=== PATIENT | male | born 1930 | race Hispanic/Latino ===

== ENCOUNTER 2017-04-10 07:35 | Inpatient (IN) | payer MEDICARE ==
[2017-04-10 07:40] VITALS: BMI 24.8
--- NOTE | 2017-04-10 08:01 | C.PDOC ---
History Of Present Illness 86 yr old male with PMHx of stroke with residua right sided weakness and lymphoma, presents to the ER accompanied by with complaints of cough since yesterday and a fever of 102. states she gave patient Ibuprofen today and patient was seen by PCP Dr. Tellez yesterday who gave patient a cough syrup. also states patient is not on any treatment for the lymphoma. Denies vomiting, abdominal pain, diarrhea or rash. Time Seen by Provider: 04/10/17 07:50 Chief Complaint (Nursing): Fever History Per: Patient History/Exam Limitations: no limitations Onset/Duration Of Symptoms: Days (1) Past Medical History Reviewed: Historical Data, Nursing Documentation, Vital Signs Vital Signs: Last Vital Signs Temp 98 F 04/10/17 16:00 Pulse 80 04/10/17 16:00 Resp 18 04/10/17 16:00 BP 175/98 H 04/10/17 16:00 Pulse Ox 96 04/10/17 16:00 - Medical History PMH: Asthma, Cardia Arrhythmia, Colonic Polyps, HTN, Hypercholesterolemia Surgical History: Coronary Stent, Endoscopy, Pacemaker (Left) - [facility] Procedures DRAINAGE OF RIGHT PLEURAL CAVITY, PERC APPROACH, DIAGN (11/27/15) INFLUENZA VACCINATION (07/07/14) INSERTION OF INFUSION DEV INTO SUP VENA CAVA, PERC APPROACH (08/20/15) Family History: States: No Known Family Hx - Social History Hx Tobacco Use: No Hx Alcohol Use: No Hx Substance Use: No - Immunization History Hx Tetanus Toxoid Vaccination: No Hx Influenza Vaccination: Yes Hx Pneumococcal Vaccination: Yes Review Of Systems Except As Marked, All Systems Reviewed And Found Negative. Constitutional: Positive for: Fever (102 ) Respiratory: Positive for: Cough Gastrointestinal: Negative for: Vomiting, Abdominal Pain, Diarrhea Skin: Negative for: Rash Physical Exam - Physical Exam Appears: Non-toxic, No Acute Distress Skin: Warm, Dry Head: Atraumatic, Normacephalic Oral Mucosa: Moist Throat: Normal, No Erythema, No Exudate, No Drooling Neck: Normal, Normal ROM, Supple Chest: Symmetrical, No Tenderness Cardiovascular: Rhythm Regular, No Murmur Respiratory: Normal Breath Sounds, No Rales, No Rhonchi, No Wheezing Neurological/Psych: Oriented x3, Other ((+) Chronic right sided weakness. ) ED Course And Treatment - Laboratory Results Result Diagrams: 04/10/17 08:30 07/04/17 08:30 ECG: Interpreted By Me, Viewed By Me ECG Rhythm: Atrial Fibrillation (with ventricular paced complexes) ECG Interpretation: No Acute Changes Interpretation Of ECG: T wave abnormalites. Similar to 11/26/15 Rate From EC (BPM ) O2 Sat by Pulse Oximetry: 96 (RA ) Pulse Ox Interpretation: Normal - Radiology CXR: Interpreted by Me, Viewed By Me CXR Interpretation: Yes: Other (Bibasilar opacity. Similar to prior. ) Medical Decision Making Medical Decision Making: PLAN: * CXR * EKG * VBG * Troponin * CBC * CMP * Urinalysis * Sodium Chloride IV Disposition - Disposition Disposition: HOSPITALIZED Disposition Time: 09:15 Condition: STABLE - Clinical Impression Clinical Impression: Pneumonia - Scribe Statement The provider has reviewed the documentation as recorded by the Ulises Bernard Provider Attestation: All medical record entries made by the Maniibe were at my direction and personally dictated by me. I have reviewed the chart and agree that the record accurately reflects my personal performance of the history, physical exam, medical decision making, and the department course for this patient. I have also personally directed, reviewed, and agree with the discharge instructions and disposition.
[2017-04-10] MEDS ORDERED: Sodium Chloride 0.9% 1,000 ML IV ONE ×2 (08:02→09:08)
[2017-04-10 08:35] LABS: BASO # 0.1 K/uL (0.0-0.2); BASO % 1.1 % (0.0-2.0); EOS # 0.1 K/uL (0.0-0.7); EOS % 2.1 % (0.0-4.0); LYMPH # 1.3 K/uL (1.0-4.3); LYMPH % 25.8 % (20.0-40.0); MEAN CELL VOLUME 94.3 fL (80.0-94.0); MEAN CORPUSCULAR HEMOGLOBIN 31.1 pg (27.0-31.0); MEAN PLATELET VOLUME 9.1 fL (7.2-11.7); MONO # 0.6 K/uL (0.0-0.8); NEUT # 3.1 K/uL (1.8-7.0); RBC 4.44 Mil/uL (4.40-5.90); WHITE BLOOD COUNT 5.2 K/uL (4.8-10.8)
[2017-04-10 08:40] LABS: VENOUS BLOOD GAS BASE EXCESS 0.9 mmol/L (0.0-2.0); VENOUS BLOOD GAS PCO2 33 mmHg (40-60); VENOUS BLOOD GAS PO2 63 mm/Hg (30-55); VENOUS BLOOD PH 7.47 (7.32-7.43)
[2017-04-10 08:43] LABS: INR 1.2; PROTHROMBIN TIME 13.2 SECONDS (9.7-12.2)
[2017-04-10 08:49] LABS: ALBUMIN 3.9 g/dL (3.5-5.0)
[2017-04-10 08:52] LABS: ALB/GLOB RATIO 1.1 (1.0-2.1); ALT/SGPT 29 U/L (21-72); AST/SGOT 28 U/L (17-59); BLOOD UREA NITROGEN 17 mg/dL (9-20); GFR AFRICAN-AMERICAN > 60; GFR NON-AFRICAN AMERICAN > 60
[2017-04-10 08:53] LABS: CALCIUM 9.5 mg/dl (8.6-10.4)
[2017-04-10 08:55] LABS: HEMOGLOBIN 13.8 g/dL (12.0-18.0)
[2017-04-10] MEDS ORDERED: Azithromycin 500 MG in Sodium Chloride 0.9% 250 ML IVPB STA (08:58)
[2017-04-10] MEDS ORDERED: Sodium Chloride 0.9% 1,000 ML ONE ×2 (09:09→09:19)
[2017-04-10] MEDS ORDERED: Azithromycin 500mg/250ML NS 500 MG/250 ML BAG IVPB ONE (09:09)
[2017-04-10] MEDS ORDERED: cefTRIAXone IV 1 gm in Dextros 50 ML IVPB ONE (09:09)
[2017-04-10 09:27] LABS: SQUAMOUS EPITHIAL 3 /hpf (0-5); URINE BILIRUBIN NEGATIVE (NEGATIVE); URINE BLOOD NEGATIVE (NEGATIVE); URINE CLARITY Clear (Clear); URINE COLOR Yellow (YELLOW); URINE GLUCOSE (UA) NORMAL (Normal); URINE LEUKOCYTE ESTERASE NEG Leu/uL (Negative); URINE NITRATE NEGATIVE (NEGATIVE); URINE PROTEIN NEGATIVE (NEGATIVE); URINE UROBILINOGEN NORMAL mg/dL (0.2-1.0)
[2017-04-10] MEDS ORDERED: guaiFENesin 100 mg/5 ml Syrup UD PO PRN (10:31)
--- NOTE | 2017-04-10 10:56 | CP.PCM.HP ---
<Ministerio Larios - Last Filed: 04/10/17 11:40> History of Present Illness - History of Present Illness History of Present Illness: CC: Fever and cough HPI: Mr Hicks is a 86 yo M who presented to the ED for fever and a cough. He says the fever and cough began yesterday afternoon. His took a temperature at home which was 102F. He reports that his cough is productive with clear phlegm. He admits to diaphoresis and chills. He denies any remitting or exacerbating factors. He did not take any meds for his fever. He also admits to mid sternal chest pain when he coughs, and urinary frequency last night as he said he urinated 5-6x, which was unusual for him. He denies all other symptoms on ROS. PMD: Dr Issa Cardio: Dr Issa Onc: Dr Nguyễn PMHx: CVA 1970 - rt sided facial weakness Lymphoma - chemo tx every 2 months Afib CAD PSHx: CABG 2007 Rt pleural drainage 2016 Home Meds: Digoxin 0.125mg po daily Metoprolol Succinate 100mg po daily Valsartan 360mg po daily SocialHx: denies smoking hx; -etoh; lives with at home FamHx: Mother 99yo; Father at 92yo; causes unknown to pt Present on Admission - Present on Admission Any Indicators Present on Admission: No Review of Systems - Constitutional Constitutional: Chills, Excessive Sweating, Fever - EENT Eyes: absent: Change in Vision Ears: absent: Ear Pain Nose/Mouth/Throat: absent: Sore Throat - Cardiovascular Cardiovascular: absent: Chest Pain Additional comments: chest pain only when he coughs - Respiratory Respiratory: Cough. absent: Dyspnea, Wheezing - Gastrointestinal Gastrointestinal: absent: Abdominal Pain, Diarrhea - Genitourinary Genitourinary: Urinary Frequency. absent: Dysuria - Musculoskeletal Musculoskeletal: absent: Joint Swelling, Numbness, Tingling - Integumentary Integumentary: absent: Bleeding Lesions, Erythema, Wounds - Neurological Neurological: absent: Behavioral Changes, Dizziness - Psychiatric Psychiatric: absent: Behavioral Changes, Confusion - Endocrine Endocrine: absent: Palpitations Past Patient History - Tetanus Immunizations Tetanus Immunization: Unknown - Past Medical History & Family History Past Medical History?: Yes - Past Social History Smoking Status: Former Smoker - CARDIAC Hx Cardia Arrhythmia: Yes Hx Hypercholesterolemia: Yes Hx Hypertension: Yes Hx Pacemaker: Yes (Left) - PULMONARY Hx Asthma: Yes - NEUROLOGICAL Hx Neurological Disorder: No HX Cerebrovascular Accident: No - HEENT Hx HEENT Problems: No - RENAL Hx Chronic Kidney Disease: No - ENDOCRINE/METABOLIC Hx Endocrine Disorders: No - HEMATOLOGICAL/ONCOLOGICAL Hx Blood Disorders: Yes Hx Cancer: Yes (COLON LUNG) - INTEGUMENTARY Hx Dermatological Problems: No - MUSCULOSKELETAL/RHEUMATOLOGICAL Hx Musculoskeletal Disorders: No Hx Falls: No - GASTROINTESTINAL Hx Gastrointestinal Disorders: No - GENITOURINARY/GYNECOLOGICAL Hx Genitourinary Disorders: Yes Hx Prostate Problems: Yes - PSYCHIATRIC Hx Substance Use: No - SURGICAL HISTORY Hx Coronary Stent: Yes - ANESTHESIA Hx Anesthesia: Yes Hx Anesthesia Reactions: No Hx Malignant Hyperthermia: No Meds Allergies/Adverse Reactions: Allergies Allergy/AdvReac Type Severity Reaction Status Date / Time No Known Allergies Allergy Verified 11/26/15 23:19 Physical Exam - Constitutional Appears: Well, Non-toxic, No Acute Distress - Head Exam Head Exam: ATRAUMATIC, NORMAL INSPECTION, NORMOCEPHALIC - Eye Exam Eye Exam: EOMI, Normal appearance, PERRL - ENT Exam ENT Exam: Mucous Membranes Moist, Normal Exam - Neck Exam Neck exam: Positive for: Normal Inspection - Respiratory Exam Respiratory Exam: Clear to Auscultation Bilateral, NORMAL BREATHING PATTERN - Cardiovascular Exam Cardiovascular Exam: REGULAR RHYTHM - GI/Abdominal Exam GI & Abdominal Exam: Normal Bowel Sounds, Soft. absent: Tenderness - Rectal Exam Rectal Exam: Deferred - Extremities Exam Extremities exam: Positive for: normal inspection - Neurological Exam Neurological exam: Alert, Oriented x3, Reflexes Normal - Psychiatric Exam Psychiatric exam: Normal Affect, Normal Mood - Skin Skin Exam: Dry, Intact, Normal Color, Warm Results - Vital Signs Recent Vital Signs: Last Vital Signs Temp 97.6 F 04/10/17 09:42 Pulse 101 H 04/10/17 09:42 Resp 20 04/10/17 09:42 BP 137/76 04/10/17 09:42 Pulse Ox 97 04/10/17 09:42 - Labs Result Diagrams: 04/10/17 08:30 04/10/17 08:30 Assessment & Plan (1) Fever Assessment and Plan: Fever and cough possibly 2/2 pneumonia, treat for pneumonia Temp 97.6F, improved from 102F taken at home WBC 5.2 Chest xray impression: "Poor inspiration with low lung volumes, crowded bronchovascular markings and mild bibasilar atelectasis right greater than left. No change right-sided mediport" Azithromycin 500mg IV once daily Ceftriaxone 1gm IV once daily Hold fluticasone Propionate Blood Cx, Urine Cx, f/u Guaifenesin 100mg PO q4 prn for cough procalcitonin, mycoplasma, legionella urine, f/u repeat chest xray in the morning Status: Acute (2) Atrial fibrillation Assessment and Plan: Regular rhythm heard on auscultation con't home med of digoxin 0.125mg po daily Status: Acute (3) Coronary artery disease Assessment and Plan: con't home med Metoprolol Succinate 100mg po daily con't home med Valsartan 360mg po daily Status: Acute (4) Hypertension Assessment and Plan: BP 137/76 con't home med metoprolol succinate 100mg po daily con't home med valsartan 360mg po daily Status: Chronic (5) Prophylactic measure Assessment and Plan: Pepcid 20mg bid po daily Lovenox 40mg sc daily activity as tolerated heart healthy diet Status: Acute <Diallo Rivas - Last Filed: 04/11/17 17:41> Results - Vital Signs Recent Vital Signs: Last Vital Signs Temp 97.4 F L 04/11/17 08:00 Pulse 70 04/11/17 08:00 Resp 20 04/11/17 08:00 BP 175/88 H 04/11/17 08:00 Pulse Ox 97 04/11/17 08:00 - Labs Result Diagrams: 04/11/17 07:17 04/11/17 07:15 Labs: Laboratory Results - last 24 hr 04/11/17 04/11/17 04/11/17 07:15 07:15 07:17 WBC 4.1 L RBC 4.24 L Hgb 13.1 Hct 39.8 MCV 93.9 MCH 31.0 MCHC 33.0 RDW 14.5 Plt Count 96 L MPV 9.5 Neut % (Auto) 42.1 L Lymph % (Auto) 38.8 [place] % (Auto) 14.7 H Eos % (Auto) 3.4 Baso % (Auto) 1.0 Neut # 1.7 L Lymph # 1.6 [place] # 0.6 Eos # 0.1 Baso # 0.0 Sodium 141 Potassium 3.6 Chloride 106 Carbon Dioxide 26 Anion Gap 13 BUN 12 Creatinine 0.8 Est GFR ( Amer) > 60 Est GFR (Non-Af Amer) > 60 Random Glucose 120 H Calcium 9.1 Phosphorus 2.4 L Magnesium 2.2 Total Bilirubin 0.9 AST 24 ALT 21 D Alkaline Phosphatase 65 Total Protein 6.5 Albumin 3.5 Globulin 3.0 Albumin/Globulin Ratio 1.2 Procalcitonin < 0.05 L Attending/Attestation - Attestation I have personally seen and examined this patient.: Yes I have fully participated in the care of the patient.: Yes I have reviewed all pertinent clinical information: Yes Notes (Text): 04/11/17 17:41 Patient was seen and examined at bedside with the resident Patient is complaining of cough with expectoration We will start the patient on antibiotics for community-acquired pneumonia I discussed the plan of care with the resident. Assessment and plan documented by the resident
--- NOTE | 2017-04-10 11:07 | RAD ---
HISTORY: fever COMPARISON: Comparison made with prior chest radiograph 11/29/[address] scan chest 11/27/2015. FINDINGS: LUNGS: Poor inspiration with low lung volumes, crowded bronchovascular markings and mild bibasilar atelectasis right greater than left. Developing infiltrates could be excluded with followup radiographs. No change right-sided MediPort PLEURA: No significant pleural effusion identified, no pneumothorax apparent. CARDIOVASCULAR: Sternotomy wires CABG clips and bipolar pacemaker again noted. Aorta is ectatic and uncoiled. Marked cardiomegaly. no change bipolar pacemaker OSSEOUS STRUCTURES: No significant abnormalities. VISUALIZED UPPER ABDOMEN: Normal. OTHER FINDINGS: None. IMPRESSION: Poor inspiration with low lung volumes, crowded bronchovascular markings and mild bibasilar atelectasis right greater than left. . No change right-sided MediPort Marked cardiomegaly
[2017-04-10] MEDS: Digoxin 125 mcg (0.125 mg) Tab PO SCH (18:29)
[2017-04-11 01:02] VITALS: RESP 20
[2017-04-11 07:30] LABS: EOS # 0.1 K/uL (0.0-0.7); EOS % 3.4 % (0.0-4.0); HEMOGLOBIN 13.1 g/dL (12.0-18.0); LYMPH # 1.6 K/uL (1.0-4.3); LYMPH % 38.8 % (20.0-40.0); MEAN CELL VOLUME 93.9 fL (80.0-94.0); MEAN PLATELET VOLUME 9.5 fL (7.2-11.7); MONO # 0.6 K/uL (0.0-0.8); MONO % 14.7 % (0.0-10.0); NEUT # 1.7 K/uL (1.8-7.0); NEUT % 42.1 % (50.0-75.0); NRBC % 0.1 % (0.0-2.0); RBC 4.24 Mil/uL (4.40-5.90); RED CELL DISTRIBUTION WIDTH 14.5 % (11.5-14.5); WHITE BLOOD COUNT 4.1 K/uL (4.8-10.8)
[2017-04-11 07:50] LABS: ALBUMIN 3.5 g/dL (3.5-5.0)
[2017-04-11 07:53] LABS: ALB/GLOB RATIO 1.2 (1.0-2.1); AST/SGOT 24 U/L (17-59); GFR AFRICAN-AMERICAN > 60; GFR NON-AFRICAN AMERICAN > 60
[2017-04-11 07:54] LABS: ALT/SGPT 21 U/L (21-72); BLOOD UREA NITROGEN 12 mg/dL (9-20); CALCIUM 9.1 mg/dl (8.6-10.4)
[2017-04-11 07:55] LABS: MAGNESIUM 2.2 mg/dL (1.6-2.3)
[2017-04-11 09:11] LABS: STREP PNEUMONIAE NEGATIVE (NEGATIVE)
[2017-04-11] MEDS: Azithromycin 500 MG in Sodium Chloride 0.9% 250 ML IVPB SCH (09:23)
[2017-04-11] MEDS: Enoxaparin 40 mg Syringe SC SCH (09:23)
[2017-04-11] MEDS: Metoprolol Succinate 100 mg XL Tab PO SCH (09:23)
--- NOTE | 2017-04-11 15:05 | CP.PCM.PN ---
Subjective - Date & Time of Evaluation Date of Evaluation: 04/11/17 Time of Evaluation: 09:55 - Subjective Subjective: Medicine note (PGY 1): Dr. Rivas's service Patient was seen and examined at bedside. Patient states that he is feeling much better. Patient reports no acute issues. Patient denies chest pain, sob, nausea, vomiting, fever, chills but reports productive cough with with pheglm and rib pain from coughing. Objective - Vital Signs/Intake and Output Vital Signs (last 24 hours): Temp Pulse Resp BP Pulse Ox 97.4 F L 70 20 175/88 H 97 04/11/17 08:00 04/11/17 08:00 04/11/17 08:00 04/11/17 08:00 04/11/17 08:00 Intake and Output: 04/11/17 04/11/17 06:59 18:59 Intake Total 200 Output Total 200 Balance -200 200 - Medications Medications: Current Medications Aspirin (Ecotrin) 81 mg PO DAILY [facility] Last Admin: 04/11/17 09:23 Dose: 81 mg Digoxin (Lanoxin) 0.125 mg PO DAILY@1800 [facility] Last Admin: 04/10/17 18:29 Dose: 0.125 mg Enoxaparin Sodium (Lovenox) 40 mg SC DAILY [facility] Last Admin: 04/11/17 09:23 Dose: 40 mg Famotidine (Pepcid) 20 mg PO BID [facility] Last Admin: 04/11/17 09:23 Dose: 20 mg Guaifenesin (Robitussin) 100 mg PO Q4H PRN PRN Reason: Cough Last Admin: 04/10/17 18:30 Dose: 100 mg Ceftriaxone Sodium 1 gm/ (Sodium Chloride) 100 mls @ 100 mls/hr IVPB DAILY [facility] Last Admin: 04/11/17 09:21 Dose: 100 mls/hr Azithromycin 500 mg/ Sodium (Chloride) 250 mls @ 250 mls/hr IVPB DAILY [facility] Last Admin: 04/11/17 09:23 Dose: 250 mls/hr Losartan Potassium (Cozaar) 100 mg PO DAILY [facility] Last Admin: 04/11/17 09:23 Dose: 100 mg Metoprolol Succinate (Toprol Xl) 100 mg PO DAILY [facility] Last Admin: 04/11/17 09:23 Dose: 100 mg Pneumococcal Polyvalent Vaccine (Pneumovax 23 Vaccine) 0.5 ml IM .ONCE ONE Stop: 04/12/17 10:01 - Labs Labs: 04/11/17 07:17 04/11/17 07:15 PT 13.2 SECONDS (9.7-12.2) H 04/10/17 08:30 INR 1.2 04/10/17 08:30 APTT 31 SECONDS (21-34) 04/10/17 08:30 Assessment and Plan (1) Community acquired pneumonia Assessment & Plan: Temp: 100.3 F Procalcitonin <0.05, lactate 1.2 Chest X-ray: Marked cardiomegaly, Bronchovascular markings & mild bibasilar atelactasis R>Left Azithromycin 500MG IN NS---> started on 04/11/17 Ceftriaxone 1gm in NS ---> Started on 04/11/17 Status: Acute (2) Fever Assessment & Plan: Improving Tmax 100.3--->97.9 Procalcitonin <0.05, lactate 1.2 Azithromycin 500MG IN NS---> started on 04/11/17 Ceftriaxone 1gm in NS ---> Started on 04/11/17 Chest X-ray: Marked cardiomegaly, Bronchovascular markings & mild bibasilar atelactasis R>Left UA: Negative Status: Acute (3) Cough Assessment & Plan: Productive--- white phlegm Robitussin 100mg PO Q4H prn Azithromycin 500MG IN NS---> started on 04/11/17 Ceftriaxone 1gm in NS ---> Started on 04/11/17 Chest X-ray: Marked cardiomegaly, Bronchovascular markings & mild bibasilar atelactasis R>Left Status: Acute (4) Atelectasis Assessment & Plan: Chest X-ray: Marked cardiomegaly, Bronchovascular markings & mild bibasilar atelactasis R>Left * incentive spirometry * PT/OT Evaluation Status: Acute (5) Atrial fibrillation Assessment & Plan: [id number] * Score : 4 * Rate controlled with Metoprolol Succinate 100mg PO daily, Digoxin 0.125mg PO Daily * Monitor telemetry Status: Acute (6) HTN (hypertension) Assessment & Plan: Uncontrolled Metoprolol Succinate 100mg PO daily Cozaar 100mg PO daily Status: Acute (7) Prophylactic measure Assessment & Plan: SCD Pepcid 20mg PO BID Lovenox 40mg SC daily PT/OT evaluation Status: Acute
[2017-04-11] MEDS: Digoxin 125 mcg (0.125 mg) Tab PO SCH (17:45)
[2017-04-11 17:46] VITALS: PULSE 65
--- NOTE | 2017-04-11 21:33 | CARD ---
APPROVED REPORT EKG Measurement Heart [id number] <Conclusion> Atrial fibrillation with frequent ventricular-paced complexes Nonspecific T wave abnormality Abnormal ECG
[2017-04-12 01:23] VITALS: O2SAT 98
[2017-04-12] MEDS ORDERED: Bisacodyl 5mg EC Tab PO ONE ×2 (06:17→06:45)
[2017-04-12 07:10] LABS: BASO # 0.1 K/uL (0.0-0.2); BASO % 1.3 % (0.0-2.0); EOS # 0.2 K/uL (0.0-0.7); EOS % 4.4 % (0.0-4.0); HEMOGLOBIN 13.6 g/dL (12.0-18.0); LYMPH # 1.7 K/uL (1.0-4.3); MEAN CELL VOLUME 93.8 fL (80.0-94.0); MEAN CORPUSCULAR HEMOGLOBIN 30.8 pg (27.0-31.0); MEAN CORPUSCULAR HGB CONC 32.8 g/dL (33.0-37.0); MEAN PLATELET VOLUME 9.9 fL (7.2-11.7); MONO # 0.5 K/uL (0.0-0.8); MONO % 12.5 % (0.0-10.0); NEUT # 1.5 K/uL (1.8-7.0); NEUT % 38.8 % (50.0-75.0); NRBC % 0.2 % (0.0-2.0); RBC 4.41 Mil/uL (4.40-5.90); RED CELL DISTRIBUTION WIDTH 14.6 % (11.5-14.5); WHITE BLOOD COUNT 3.9 K/uL (4.8-10.8)
[2017-04-12 07:42] LABS: ALBUMIN 3.6 g/dL (3.5-5.0)
[2017-04-12 07:45] LABS: ALB/GLOB RATIO 1.1 (1.0-2.1); ALT/SGPT 21 U/L (21-72); AST/SGOT 23 U/L (17-59); BLOOD UREA NITROGEN 13 mg/dL (9-20); GFR AFRICAN-AMERICAN > 60; GFR NON-AFRICAN AMERICAN > 60
[2017-04-12 07:46] LABS: CALCIUM 9.3 mg/dl (8.6-10.4); MAGNESIUM 2.3 mg/dL (1.6-2.3)
[2017-04-12] MEDS: Metoprolol Succinate 100 mg XL Tab PO SCH ×2 (08:03→12:50)
[2017-04-12 09:17] VITALS: BP 194/96; PULSE 65; TEMP 97.4
[2017-04-12] MEDS ORDERED: Pneumococcal 23-Valent Vaccine IM ONE (10:00)
[2017-04-12] MEDS: Enoxaparin 40 mg Syringe SC SCH (10:03)
--- NOTE | 2017-04-12 10:57 | CP.PCM.DIS ---
<Annika Gabriel E - Last Filed: 04/12/17 20:23> Provider - Provider Date of Admission: 04/10/17 09:15 Attending physician: Diallo Rivas MD Time Spent in preparation of Discharge (in minutes): 45 Diagnosis - Discharge Diagnosis (1) Community acquired pneumonia Status: Acute (2) Fever Status: Acute (3) Cough Status: Acute (4) Atelectasis Status: Acute (5) Atrial fibrillation Status: Acute (6) HTN (hypertension) Status: Acute (7) Prophylactic measure Status: Acute Hospital Course - Lab Results Lab Results: Micro Results 04/10/17 10:00 Blood-Venous Blood Culture - Preliminary NO GROWTH AFTER 48 HOURS 04/10/17 10:00 Blood-Venous Blood Culture - Preliminary NO GROWTH AFTER 48 HOURS Most Recent Lab Values WBC 3.9 K/uL (4.8-10.8) L 04/12/17 07:02 RBC 4.41 Mil/uL (4.40-5.90) 04/12/17 07:02 Hgb 13.6 g/dL (12.0-18.0) 04/12/17 07:02 Hct 41.4 % (35.0-51.0) 04/12/17 07:02 MCV 93.8 fL (80.0-94.0) 04/12/17 07:02 MCH 30.8 pg (27.0-31.0) 04/12/17 07:02 MCHC 32.8 g/dL (33.0-37.0) L 04/12/17 07:02 RDW 14.6 % (11.5-14.5) H 04/12/17 07:02 Plt Count 102 K/uL (130-400) L 04/12/17 07:02 MPV 9.9 fL (7.2-11.7) 04/12/17 07:02 Neut % (Auto) 38.8 % (50.0-75.0) L 04/12/17 07:02 Lymph % (Auto) 43.0 % (20.0-40.0) H 04/12/17 07:02 [place] % (Auto) 12.5 % (0.0-10.0) H 04/12/17 07:02 Eos % (Auto) 4.4 % (0.0-4.0) H 04/12/17 07:02 Baso % (Auto) 1.3 % (0.0-2.0) 04/12/17 07:02 Neut # 1.5 K/uL (1.8-7.0) L 04/12/17 07:02 Lymph # 1.7 K/uL (1.0-4.3) 04/12/17 07:02 [place] # 0.5 K/uL (0.0-0.8) 04/12/17 07:02 Eos # 0.2 K/uL (0.0-0.7) 04/12/17 07:02 Baso # 0.1 K/uL (0.0-0.2) 04/12/17 07:02 Differential Comment 04/10/17 08:30 PT 13.2 SECONDS (9.7-12.2) H 04/10/17 08:30 INR 1.2 04/10/17 08:30 APTT 31 SECONDS (21-34) 04/10/17 08:30 pO2 63 mm/Hg (30-55) H 04/10/17 08:35 VBG pH 7.47 (7.32-7.43) H 04/10/17 08:35 VBG pCO2 33 mmHg (40-60) L 04/10/17 08:35 VBG HCO3 25.5 mmol/L 04/10/17 08:35 VBG Total CO2 25.0 mmol/L (22-28) 04/10/17 08:35 VBG O2 Sat (Calc) 94.7 % (40-65) H 04/10/17 08:35 VBG Base Excess 0.9 mmol/L (0.0-2.0) 04/10/17 08:35 VBG Potassium 4.5 mmol/L (3.6-5.2) 04/10/17 08:35 Sodium 139.0 mmol/l (132-148) 04/10/17 08:35 Chloride 110.0 mmol/L (98-107) H 04/10/17 08:35 Glucose 122 mg/dl (75-110) H 04/10/17 08:35 Lactate 1.3 mmol/L (0.7-2.1) 04/10/17 08:35 Sodium 142 mmol/L (132-148) 04/12/17 07:02 Potassium 3.6 mmol/L (3.6-5.2) 04/12/17 07:02 Chloride 107 mmol/L (98-107) 04/12/17 07:02 Carbon Dioxide 24 mmol/L (22-30) 04/12/17 07:02 Anion Gap 15 (10-20) 04/12/17 07:02 BUN 13 mg/dL (9-20) 04/12/17 07:02 Creatinine 0.7 MG/DL (0.8-1.5) L 04/12/17 07:02 Est GFR ( Amer) > 60 04/12/17 07:02 Est GFR (Non-Af Amer) > 60 04/12/17 07:02 POC Glucose (mg/dL) 133 mg/dL (65-110) H 04/10/17 11:29 Random Glucose 141 mg/dL (75-110) H 04/12/17 07:02 Calcium 9.3 mg/dl (8.6-10.4) 04/12/17 07:02 Phosphorus 2.5 mg/dL (2.5-4.5) 04/12/17 07:02 Magnesium 2.3 mg/dL (1.6-2.3) 04/12/17 07:02 Total Bilirubin 0.8 mg/dL (0.2-1.3) 04/12/17 07:02 AST 23 U/L (17-59) 04/12/17 07:02 ALT 21 U/L (21-72) 04/12/17 07:02 Alkaline Phosphatase 80 U/L (38-126) 04/12/17 07:02 Troponin I 0.0300 ng/mL (0.00-0.120) 04/10/17 08:30 Total Protein 6.9 g/dL (6.3-8.3) 04/12/17 07:02 Albumin 3.6 g/dL (3.5-5.0) 04/12/17 07:02 Globulin 3.2 gm/dL (2.2-3.9) 04/12/17 07:02 Albumin/Globulin Ratio 1.1 (1.0-2.1) 04/12/17 07:02 Procalcitonin < 0.05 NG/ML (0.19-0.49) L 04/11/17 07:15 Venous Blood Potassium 4.5 mmol/L (3.6-5.2) 04/10/17 08:35 Urine Color Yellow (YELLOW) 04/10/17 09:08 Urine Clarity Clear (Clear) 04/10/17 09:08 Urine pH 5.0 (5.0-8.0) 04/10/17 09:08 Ur Specific [place] 1.015 (1.003-1.030) 04/10/17 09:08 Urine Protein Negative mg/dL (NEGATIVE) 04/10/17 09:08 Urine Glucose (UA) Normal mg/dL (Normal) 04/10/17 09:08 Urine Ketones Negative mg/dL (NEGATIVE) 04/10/17 09:08 Urine Blood Negative (NEGATIVE) 04/10/17 09:08 Urine Nitrate Negative (NEGATIVE) 04/10/17 09:08 Urine Bilirubin Negative (NEGATIVE) 04/10/17 09:08 Urine Urobilinogen Normal mg/dL (0.2-1.0) 04/10/17 09:08 Ur Leukocyte Esterase Neg [place]/uL (Negative) 04/10/17 09:08 Urine WBC (Auto) < 1 /hpf (0-5) 04/10/17 09:08 Urine RBC (Auto) 1 /hpf (0-3) 04/10/17 09:08 Ur Squamous Epith Cells 3 /hpf (0-5) 04/10/17 09:08 Digoxin 0.7 ng/mL (0.8-2.0) L 04/10/17 08:30 H.influenzae Type B Ag instructor robotics (NEGATIVE) 04/10/17 08:15 Ur L.pneumophila Ag Negative (NEGATIVE) 04/10/17 08:15 Mycoplasma pneumon IgM Negative (NEGATIVE) 04/11/17 12:58 N.meningitidis ACY/W135 instructor robotics (NEGATIVE) 04/10/17 08:15 N.meningi B/E.coli K1 Ag instructor robotics (NEGATIVE) 04/10/17 08:15 Group B Strep Antigen instructor robotics (NEGATIVE) 04/10/17 08:15 S. pneumoniae Antigen Negative (NEGATIVE) 04/10/17 08:15 - Hospital Course Hospital Course: As per admission: HPI : Mr Hicks is a 86 yo M who presented to the ED for fever and a cough. He says the fever and cough began yesterday afternoon. His took a temperature at home which was 102F. He reports that his cough is productive with clear phlegm. He admits to diaphoresis and chills. He denies any remitting or exacerbating factors. He did not take any meds for his fever. He also admits to mid sternal chest pain when he coughs, and urinary frequency last night as he said he urinated 5-6x, which was unusual for him. He denies all other symptoms on ROS Hospital Course: Patient is a 86 year old male with past medical history of CVA , CAD, lymphoma, colon cancer, A.fib and HTN, who presents to the Ed on 04/10/17 with complaints of fever and cough. Patient was admitted with the consideration for pneumonia. Patient was then medically managed with IV antibiotics and his symptoms started to resolve. During this hospital stay, patient was evaluated by physical and occupational therapy. Patient started to improve clinically. Patient was then discharge home with PO antibiotics and home physical therapy. Pertinent study result: Marked cardiomegaly, Bronchovascular markings & mild bibasilar atelactasis R> Left This is a brief summary of events. For a complete course, refer to the medical record. Discharge Exam - Head Exam Head Exam: ATRAUMATIC, NORMAL INSPECTION, NORMOCEPHALIC - Eye Exam Eye Exam: EOMI, Normal appearance - ENT Exam ENT Exam: Mucous Membranes Moist, Normal Exam - Respiratory Exam Respiratory Exam: Clear to PA & Lateral, NORMAL BREATHING PATTERN - Cardiovascular Exam Cardiovascular Exam: Irregular Rhythm, +S1, +S2 - GI/Abdominal Exam GI & Abdominal Exam: Normal Bowel Sounds, Soft - Extremities Exam Extremities exam: normal capillary refill, normal inspection - Neurological Exam Neurological exam: Alert, Oriented x3 - Psychiatric Exam Psychiatric exam: Normal Affect, Normal Mood - Skin Skin Exam: Dry, Normal Color, Warm Discharge Plan - Discharge Medications Prescriptions: Levofloxacin [Levaquin] 500 mg PO DAILY #5 tablet Valsartan/Hydrochlorothiazide [Diovan Hct 320-12.5 mg Tab] 1 each PO DAILY #30 tablet - Follow Up Plan Condition: STABLE Disposition: HOME/ ROUTINE Instructions: Levofloxacin (By mouth), Valsartan/Hydrochlorothiazide (By mouth) , Heart Failure (DC), Heart Healthy Diet (DC), Pneumonia (DC) Additional Instructions: Please discharge patient home Please start the following new medication as prescribed: 1. Levofloxacin 500mg PO daily for 5 days ( You will complete your dose April 17, 2017) 2. Aspirin 81 mg PO daily Please resume all home medications as prescribed. Please follow up with your primary care doctor ( Dr. Yan Issa) within a week. Please ask you primary care physician regarding irregular heart beat and anticoagulation therapy Please follow up with your oncologist (Dr. Issa) within a week Please return to the hospital if symptoms resume. Referrals: Kiki Issa MD [Staff Provider] - Ketty Issa MD [Staff Provider] - <Diallo Rivas - Last Filed: 04/13/17 08:19> Provider - Provider Date of Admission: 04/10/17 09:15 Attending physician: Diallo Rivas MD Hospital Course - Lab Results Lab Results: Micro Results 04/10/17 10:00 Blood-Venous Blood Culture - Preliminary NO GROWTH AFTER 48 HOURS 04/10/17 10:00 Blood-Venous Blood Culture - Preliminary NO GROWTH AFTER 48 HOURS Most Recent Lab Values WBC 3.9 K/uL (4.8-10.8) L 04/12/17 07:02 RBC 4.41 Mil/uL (4.40-5.90) 04/12/17 07:02 Hgb 13.6 g/dL (12.0-18.0) 04/12/17 07:02 Hct 41.4 % (35.0-51.0) 04/12/17 07:02 MCV 93.8 fL (80.0-94.0) 04/12/17 07:02 MCH 30.8 pg (27.0-31.0) 04/12/17 07:02 MCHC 32.8 g/dL (33.0-37.0) L 04/12/17 07:02 RDW 14.6 % (11.5-14.5) H 04/12/17 07:02 Plt Count 102 K/uL (130-400) L 04/12/17 07:02 MPV 9.9 fL (7.2-11.7) 04/12/17 07:02 Neut % (Auto) 38.8 % (50.0-75.0) L 04/12/17 07:02 Lymph % (Auto) 43.0 % (20.0-40.0) H 04/12/17 07:02 [place] % (Auto) 12.5 % (0.0-10.0) H 04/12/17 07:02 Eos % (Auto) 4.4 % (0.0-4.0) H 04/12/17 07:02 Baso % (Auto) 1.3 % (0.0-2.0) 04/12/17 07:02 Neut # 1.5 K/uL (1.8-7.0) L 04/12/17 07:02 Lymph # 1.7 K/uL (1.0-4.3) 04/12/17 07:02 [place] # 0.5 K/uL (0.0-0.8) 04/12/17 07:02 Eos # 0.2 K/uL (0.0-0.7) 04/12/17 07:02 Baso # 0.1 K/uL (0.0-0.2) 04/12/17 07:02 Differential Comment 04/10/17 08:30 PT 13.2 SECONDS (9.7-12.2) H 04/10/17 08:30 INR 1.2 04/10/17 08:30 APTT 31 SECONDS (21-34) 04/10/17 08:30 pO2 63 mm/Hg (30-55) H 04/10/17 08:35 VBG pH 7.47 (7.32-7.43) H 04/10/17 08:35 VBG pCO2 33 mmHg (40-60) L 04/10/17 08:35 VBG HCO3 25.5 mmol/L 04/10/17 08:35 VBG Total CO2 25.0 mmol/L (22-28) 04/10/17 08:35 VBG O2 Sat (Calc) 94.7 % (40-65) H 04/10/17 08:35 VBG Base Excess 0.9 mmol/L (0.0-2.0) 04/10/17 08:35 VBG Potassium 4.5 mmol/L (3.6-5.2) 04/10/17 08:35 Sodium 139.0 mmol/l (132-148) 04/10/17 08:35 Chloride 110.0 mmol/L (98-107) H 04/10/17 08:35 Glucose 122 mg/dl (75-110) H 04/10/17 08:35 Lactate 1.3 mmol/L (0.7-2.1) 04/10/17 08:35 Sodium 142 mmol/L (132-148) 04/12/17 07:02 Potassium 3.6 mmol/L (3.6-5.2) 04/12/17 07:02 Chloride 107 mmol/L (98-107) 04/12/17 07:02 Carbon Dioxide 24 mmol/L (22-30) 04/12/17 07:02 Anion Gap 15 (10-20) 04/12/17 07:02 BUN 13 mg/dL (9-20) 04/12/17 07:02 Creatinine 0.7 MG/DL (0.8-1.5) L 04/12/17 07:02 Est GFR ( Amer) > 60 04/12/17 07:02 Est GFR (Non-Af Amer) > 60 04/12/17 07:02 POC Glucose (mg/dL) 133 mg/dL (65-110) H 04/10/17 11:29 Random Glucose 141 mg/dL (75-110) H 04/12/17 07:02 Calcium 9.3 mg/dl (8.6-10.4) 04/12/17 07:02 Phosphorus 2.5 mg/dL (2.5-4.5) 04/12/17 07:02 Magnesium 2.3 mg/dL (1.6-2.3) 04/12/17 07:02 Total Bilirubin 0.8 mg/dL (0.2-1.3) 04/12/17 07:02 AST 23 U/L (17-59) 04/12/17 07:02 ALT 21 U/L (21-72) 04/12/17 07:02 Alkaline Phosphatase 80 U/L (38-126) 04/12/17 07:02 Troponin I 0.0300 ng/mL (0.00-0.120) 04/10/17 08:30 Total Protein 6.9 g/dL (6.3-8.3) 04/12/17 07:02 Albumin 3.6 g/dL (3.5-5.0) 04/12/17 07:02 Globulin 3.2 gm/dL (2.2-3.9) 04/12/17 07:02 Albumin/Globulin Ratio 1.1 (1.0-2.1) 04/12/17 07:02 Procalcitonin < 0.05 NG/ML (0.19-0.49) L 04/11/17 07:15 Venous Blood Potassium 4.5 mmol/L (3.6-5.2) 04/10/17 08:35 Urine Color Yellow (YELLOW) 04/10/17 09:08 Urine Clarity Clear (Clear) 04/10/17 09:08 Urine pH 5.0 (5.0-8.0) 04/10/17 09:08 Ur Specific [place] 1.015 (1.003-1.030) 04/10/17 09:08 Urine Protein Negative mg/dL (NEGATIVE) 04/10/17 09:08 Urine Glucose (UA) Normal mg/dL (Normal) 04/10/17 09:08 Urine Ketones Negative mg/dL (NEGATIVE) 04/10/17 09:08 Urine Blood Negative (NEGATIVE) 04/10/17 09:08 Urine Nitrate Negative (NEGATIVE) 04/10/17 09:08 Urine Bilirubin Negative (NEGATIVE) 04/10/17 09:08 Urine Urobilinogen Normal mg/dL (0.2-1.0) 04/10/17 09:08 Ur Leukocyte Esterase Neg [place]/uL (Negative) 04/10/17 09:08 Urine WBC (Auto) < 1 /hpf (0-5) 04/10/17 09:08 Urine RBC (Auto) 1 /hpf (0-3) 04/10/17 09:08 Ur Squamous Epith Cells 3 /hpf (0-5) 04/10/17 09:08 Digoxin 0.7 ng/mL (0.8-2.0) L 04/10/17 08:30 H.influenzae Type B Ag instructor robotics (NEGATIVE) 04/10/17 08:15 Ur L.pneumophila Ag Negative (NEGATIVE) 04/10/17 08:15 Mycoplasma pneumon IgM Negative (NEGATIVE) 04/11/17 12:58 N.meningitidis ACY/W135 instructor robotics (NEGATIVE) 04/10/17 08:15 N.meningi B/E.coli K1 Ag instructor robotics (NEGATIVE) 04/10/17 08:15 Group B Strep Antigen instructor robotics (NEGATIVE) 04/10/17 08:15 S. pneumoniae Antigen Negative (NEGATIVE) 04/10/17 08:15 Attending/Attestation - Attestation I have personally seen and examined this patient.: Yes I have fully participated in the care of the patient.: Yes I have reviewed all pertinent clinical information, including history, physical exam and plan: Yes Notes (Text): 04/13/17 08:18 Patient was seen and examined at bedside with the resident Patient is feeling better with no complaints of cough or expectoration We will discharge patient home on oral antibiotics Patient will be started on aspirin because of history of atrial fibrillation and the we'll follow with his erp business analyst for further evaluation for anticoagulation Fever unable to contact with patient's erp business analyst Dr. Tellez for discussion about anticoagulation I agree with the discharge note by the resident.
[2017-04-12] MEDS: Azithromycin 500 MG in Sodium Chloride 0.9% 250 ML IVPB SCH (12:50)
== END 2017-04-12 13:32 | disposition home or self-care (01) | DRG 194 ==
LOC: C.ER 07:35 → C.6T 09:15
PROVIDERS: ADMIT Internal Medicine; ATTEND Internal Medicine
DX: J18.9 Pneumonia, unspecified organism (principal); I69.351 Hemiplegia and hemiparesis following cerebral infarction affecting right dominant side; I11.9 Hypertensive heart disease without heart failure; J98.11 Atelectasis; I48.91 Unspecified atrial fibrillation; I25.10 Atherosclerotic heart disease of native coronary artery without angina pectoris; I51.7 Cardiomegaly; J45.909 Unspecified asthma, uncomplicated; E78.00 Pure hypercholesterolemia, unspecified; Z95.1 Presence of aortocoronary bypass graft; Z85.72 Personal history of non-Hodgkin lymphomas; Z86.010 Personal history of colon polyps; Z95.5 Presence of coronary angioplasty implant and graft; Z95.0 Presence of cardiac pacemaker